=== PATIENT | female | born 2000 | race Caucasian/White ===

== ENCOUNTER 2022-11-02 20:21 | Emergency (ER) | payer OTHER, SELFPAY ==
[2022-11-02] VITALS (17 sets, daily range): BP systolic 114–129; BP diastolic 75–87; PULSE 57–94; RESP 16–18; TEMP 37.6; O2SAT 96–100; BMI 21.9
--- NOTE | 2022-11-02 20:51 | ED_ITS ---
HPI - General Adult General Date Seen: 11/02/22 Chief complaint: Abdominal Pain Stated complaint: Abdominal pain Time Seen by Provider: 11/02/22 20:37 Source: patient Mode of arrival: ambulatory Limitations: no limitations History of Present Illness HPI narrative: Patient is a 22-year-old who woke up this morning feeling well. 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 She developed some nausea and vomiting followed by some dry heaves. She has low- grade fever but was unaware of that. No sweats or chills. As the afternoon when on she developed some pain in her periumbilical area that started to move into her right lower quadrant. Tylenol helps a little but the pain was severe to the point where her mother brought her to the emergency department for evaluation. She denies any exposure to COVID or influenza. She is currently menstruating but does not get severe cramps with her period. She has had no runny nose, sore throat, cough. Related Data Home Medications Medication Instructions Recorded Confirmed No Known Home Medications 11/02/22 11/02/22 Allergies Allergy/AdvReac Type Severity Reaction Status Date / Time No Known Drug Allergies Allergy Verified 11/02/22 20:30 Review of Systems Narrative: Review of systems is outlined above otherwise noted to be negative. PFSH PFSH Social History Smoking Status: Never smoker Do you use any of these nicotine containing products: Vaping Products Second hand tobacco smoke exposure: No How often do you have a drink containing alcohol: 2-3 times a week How many standard drinks containing alcohol do you have on a typical day: 3 or 4 How often do you have six or more drinks on one occasion: Never AUDIT-C Alcohol total score: 4 Non-prescribed substance use: marijuana (any form) service: No Exam Narrative: Exam Narrative: Vitals noted. HEENT: Conjunctiva are injected without drainage. Tympanic membranes are pearly white bilaterally. Posterior pharynx is clear without erythema or exudate. She appears adequately hydrated. Neck is supple without adenopathy, thyromegaly, carotid bruit. Lungs: Clear to auscultation in all vazquez. No wheezes, rales, rhonchi. Heart: Regular rate and rhythm without murmur. Abdomen: She has mild diffuse tenderness with most severe pain in the right lower quadrant. No guarding. No palpable mass. Extremities: No cyanosis or edema. Good distal pulses. Skin: No abnormalities noted of the exposed skin. Neurologic: Awake, alert, fully oriented. Neurologic exam is nonfocal. Const: Vital Signs, click to edit/add: Vital Signs - 24 hr 11/02/22 20:24 11/02/22 21:13 11/02/22 21:25 Temperature 99.6 F Pulse Rate Pulse Rate [Right Pulse Oximeter] 94 74 64 Respiratory Rate 18 16 16 Blood Pressure Blood Pressure [Ri ght Upper Arm] 126/79 129/87 129/87 Pulse Oximetry 98 99 99 Oxygen Delivery Me thod Room Air Room Air 11/02/22 21:25 11/02/22 21:30 11/02/22 21:32 Temperature Pulse Rate 61 62 73 Pulse Rate [Right Pulse Oximeter] Respiratory Rate Blood Pressure 117/75 Blood Pressure [Ri ght Upper Arm] Pulse Oximetry 99 99 100 Oxygen Delivery Me thod 11/02/22 21:33 11/02/22 21:45 11/02/22 22:00 Temperature Pulse Rate 84 65 75 Pulse Rate [Right Pulse Oximeter] Respiratory Rate Blood Pressure Blood Pressure [Ri ght Upper Arm] Pulse Oximetry 99 99 98 Oxygen Delivery Me thod 11/02/22 22:01 11/02/22 22:15 11/02/22 22:30 Temperature Pulse Rate 78 78 78 Pulse Rate [Right Pulse Oximeter] Respiratory Rate Blood Pressure 124/77 Blood Pressure [Ri ght Upper Arm] Pulse Oximetry 98 99 97 Oxygen Delivery Me thod 11/02/22 22:32 Temperature Pulse Rate 88 Pulse Rate [Right Pulse Oximeter] Respiratory Rate Blood Pressure 114/82 Blood Pressure [Ri ght Upper Arm] Pulse Oximetry 98 Oxygen Delivery Me thod Course Course Hospital Course: Patient was seen and examined. IV is established and she is given a L of normal saline along with Zofran 4 mg IV and fentanyl 25 mcg IV. Later she is given Tylenol 1000 mg orally. Labs and a CT are ordered. She is swab for COVID. Reevaluation(s) Reevaluation #1: Her CT scan of the abdomen and pelvis is unremarkable. CBC, BMP, lipase are normal. LFTs show an ALT of 122 and an AST of 70. She is feeling better with the fluids and Zofran. Her COVID swab came back positive. Vital Signs Vital signs: Initial Vital Signs Temperature 99.6 F 11/02/22 20:24 Temperature Source Temporal Artery Scan 11/02/22 20:24 Pulse Rate 94 11/02/22 20:24 Respiratory Rate 18 11/02/22 20:24 Blood Pressure 126/79 11/02/22 20:24 Blood Pressure Mean 94 11/02/22 20:24 Blood Pressure Position Sitting 11/02/22 20:24 Pulse Oximetry 98 11/02/22 20:24 Oxygen Delivery Method 11/02/22 20:24 Vital Signs Temperature 99.6 F 11/02/22 20:24 Pulse Rate 94 11/02/22 20:24 Respiratory Rate 18 11/02/22 20:24 Blood Pressure 126/79 11/02/22 20:24 Pulse Oximetry 98 11/02/22 20:24 Oxygen Delivery Method 11/02/22 20:24 Temperature 99.6 F 11/02/22 20:24 Pulse Rate 88 11/02/22 22:32 Respiratory Rate 16 11/02/22 21:25 Blood Pressure 114/82 11/02/22 22:32 Pulse Oximetry 98 11/02/22 22:32 Oxygen Delivery Method 11/02/22 21:13 Medical Decision Making MDM Narrative Medical decision making narrative: She is reassured by the fact that appendicitis has been ruled out. I suspect that all her symptoms are related to COVID. We discussed the typical quarantine instructions. She will treat the symptoms individually in follow-up if not improving. Lab Data Labs: Lab Results 11/02/22 11/02/22 11/02/22 Range/Units 21:10 21:10 21:15 WBC 10.85 (4.50-11.00) K/uL RBC 4.48 (4.00-5.20) m/uL Hgb 13.1 (12.0-16.0) gm/dL Hct 40.2 (33.0-51.0) % MCV 90 (80-100) fL MCH 29 (26-34) pg MCHC 33 (32-36) gm/dL RDW Coeff of Carlos 13.2 (11.5-15.5) % Plt Count 243 (140-440) K/uL Neut % (Auto) 69.1 (42.0-72.0) % Lymph % (Auto) 23.5 (20-44) % [place] % (Auto) 5.6 (0.0-11.0) % Eos % (Auto) 1.4 (0.0-7.0) % Baso % (Auto) 0.2 (0.0-3.0) % Neut # (Auto) 7.50 H (1.7-7.0) K/uL Lymph # (Auto) 2.55 (0.90-2.90) K/uL [place] # (Auto) 0.60 (0.00-0.90) K/UL Eos # (Auto) 0.15 (0.00-0.50) K/uL Baso # (Auto) 0.02 (0.00-0.30) K/uL Sodium 139 (135-149) mmol/L Potassium 3.9 (3.6-5.1) mmol/L Chloride 108 (96-114) mmol/L Carbon Dioxide 26 (20-32) mmol/L BUN 10 (5-24) mg/dL Creatinine 0.8 (0.5-1.5) mg/dL Estimated Creat Clear 106.36 Estimated GFR 106 ml/min Glucose 105 (60-115) mg/dL Calcium 9.0 (8.4-10.6) mg/dL Total Bilirubin 0.5 (0.1-1.5) mg/dL Direct Bilirubin 0.2 (0.0-0.5) mg/dL AST 70 H (12-35) U/L ALT 122 H (4-35) U/L Alkaline Phosphatase 72 (40-150) U/L Total Protein 7.2 (6.0-8.3) g/dL Albumin 4.4 (3.3-5.0) g/dL Lipase 70 (23-300) U/L SARS-CoV-2 (PCR) POSITIVE SARS-CoV-2 A (Negative) Discharge Plan Discharge Clinical Impression: COVID-19, Abdominal pain Patient Disposition: Home, Self-Care Condition: Improved Instructions: Abdominal Pain (ED), COVID-19 and Chronic Health Conditions (ED) Additional Instructions: Rest, push fluids, bland diet. Tylenol or Ibuprofen for pain and fever. Quarantine until fever free for 24 hours and all symptoms improving. Follow up in the clinic in abdominal pain doesn't improve over the next 2-3 days. Prescriptions: No Action No Known Home Medications Follow Up/Referrals: Provider,Not a Local [Primary Care Provider] - Stand Alone Forms: [email or web address] Info Instructions
[2022-11-02] MEDS: 0.9 % SODIUM CHLORIDE 500 ML 500 ML 1000 ML IV (21:09)
[2022-11-02] MEDS: fentaNYL 100 MCG/2 ML inj 25 MCG IVP (21:09)
[2022-11-02] MEDS: ONDANSETRON 2 MG/ML inj 4 MG IVP (21:09)
[2022-11-02 21:22] LABS: Basophils Absolute Auto 0.02 K/uL (0.00-0.30); Basophils Percent Auto 0.2 % (0.0-3.0); Eosinophils Absolute Auto 0.15 K/uL (0.00-0.50); Eosinophils Percent Auto 1.4 % (0.0-7.0); Hematocrit 40.2 % (33.0-51.0); Hemoglobin* 13.1 gm/dL (12.0-16.0); Immature Granulocytes Abs Auto 0.02 K/uL (0.00-0.30); Immature Granulocytes Pct Auto 0.2 %; Lymphocytes Absolute Auto 2.55 K/uL (0.90-2.90); Lymphocytes Percent Auto 23.5 % (20-44); Mean Corpuscular HGB Conc 33 gm/dL (32-36); Mean Corpuscular Hemoglobin 29 pg (26-34); Mean Corpuscular Volume 90 fL (80-100); Monocytes Percent Auto 5.6 % (0.0-11.0); Neutrophils Percent Auto 69.1 % (42.0-72.0); Platelet Count* 243 K/uL (140-440); RDW Coefficient of Variation % 13.2 % (11.5-15.5); Red Blood Count 4.48 m/uL (4.00-5.20); White Blood Count* 10.85 K/uL (4.50-11.00)
[2022-11-02 21:24] LABS: Slide Review Reflex No
[2022-11-02 21:39] LABS: Albumin* 4.4 g/dL (3.3-5.0); Chloride* 108 mmol/L (96-114); Potassium* 3.9 mmol/L (3.6-5.1); Sodium* 139 mmol/L (135-149)
[2022-11-02 21:41] LABS: Creatinine* 0.8 mg/dL (0.5-1.5); Est. Creatinine Clearance* 106.36; Estimated Glomerular Filt Rate 106 ml/min
[2022-11-02 21:42] LABS: Alanine Aminotransferase* 122 U/L (4-35); Alkaline Phosphatase* 72 U/L (40-150); Aspartate Amino Transferase* 70 U/L (12-35); Bilirubin Direct* 0.2 mg/dL (0.0-0.5); Bilirubin Total* 0.5 mg/dL (0.1-1.5); Blood Urea Nitrogen* 10 mg/dL (5-24); Carbon Dioxide* 26 mmol/L (20-32); Glucose* 105 mg/dL (60-115); Lipase* 70 U/L (23-300); Total Protein* 7.2 g/dL (6.0-8.3)
[2022-11-02 22:12] LABS: SARS PCR* POSITIVE SARS-CoV-2 (Negative)
--- NOTE | 2022-11-02 22:26 | CRLHL7_ITS ---
For Patients: As a result of the Century Cures Act, medical imaging exams and procedure reports are released immediately into your electronic medical record. You may view this report before your referring provider. If you have questions, please contact your health care provider. INDICATION: Right lower quadrant pain TECHNIQUE: CT abdomen and pelvis acquired with 69 cc Isovue 370 IV contrast. COMPARISON: None FINDINGS: Lower chest: Pectus excavatum. Liver: Unremarkable. Spleen: Unremarkable. Pancreas: Unremarkable. Gallbladder and bile ducts: Unremarkable. Adrenal glands: Unremarkable. Kidneys: Unremarkable. GI tract: Unremarkable. Appendix is normal. Vascular structures: Unremarkable. Lymph nodes: Unremarkable. Miscellaneous: Unremarkable. No free air or significant free fluid. Pelvic Organs: There is a tampon in the vaginal canal. Bones: Unremarkable for age. IMPRESSION: No etiology seen to explain right lower quadrant pain. Pectus excavatum. Please note that all CT scans at this facility use dose modulation, iterative reconstruction, and/or weight-based dosing when appropriate to reduce radiation dose to as low as reasonably achievable. Dictated by Mana Taylor MD @ 11/02/2022 11:14:39 PM (Electronically Signed)
[2022-11-02] MEDS: ACETAMINOPHEN 500 MG TABLET 1000 MG PO (23:39)
== END 2022-11-02 23:46 | disposition home or self-care (01) ==
PROVIDERS: Emergency Provider Family Medicine
DX: R10.9 Unspecified abdominal pain (principal); U07.1 COVID-19
CPT/HCPCS: 36415; 74177; 80048; 80076; 83690; 85025; 87635; 96374; 96375; 99282; 99283; 99284; A9270; J2405; J3010; J7120; Q9967